=== PATIENT | male | born 1965 | race Caucasian/White ===

== ENCOUNTER 2018-11-22 16:36 | Outpatient (REF) | payer BC, SELFPAY ==
[2018-11-22 23:16] LABS: Polynuclear Cells 57 % (0-0)
[2018-11-22 23:26] LABS: Mononuclear Cells 43 % (0-0)
== END 2018-11-22 16:56 ==
LOC: NCHCN 16:36
PROVIDERS: PCP Nurse Practitioner Family; Visit Provider Nurse Practitioner Family
DX: M70.42 Prepatellar bursitis, left knee (principal)
CPT/HCPCS: 89051; 87070; 87106; 87205

== ENCOUNTER 2018-12-27 16:07 | Outpatient (REF) | payer BC, SELFPAY | END 2018-12-27 16:27 | LOC: NCHCN 16:07 | PROVIDERS: PCP Nurse Practitioner Family; Visit Provider Nurse Practitioner Family | DX: M70.42 Prepatellar bursitis, left knee (principal) | CPT/HCPCS: 87070; 87205 ==

== ENCOUNTER 2019-05-03 19:13 | Outpatient (REF) | payer BC, SELFPAY ==
[2019-05-03 20:30] LABS: HCT 43.8 % (40.0-50.0); HGB 15.1 g/dL (13.5-17.5); Mean Corp. HGB Concentration 34.5 g/dL (32.0-36.0); Mean Corpuscular Volume 89.9 fL (80-95); Platelet Count 362 x1000/uL (130-400); RBC 4.87 m/cumm (4.50-6.00); RBC Distribution Width 12.7 % (11.8-14.1); White Blood Cell Count 11.24 k/cumm (4.4-10.8)
[2019-05-03 20:44] LABS: Anion Gap 13.6 mmol/L (3-11); BUN 19 mg/dL (7-18); CO2 26.4 mmol/L (21.0-32.0); CREATININE 1.16 mg/dL (0.70-1.30); Calcium 9.2 mg/dL (8.5-10.1); Calculated LDL 116 mg/dL; Chloride 100 mmol/L (98-107); Cholesterol 196 mg/dL (<200); Glucose 86 mg/dL (74-106); HDL Cholesterol 47 mg/dL (40-60); Sodium 140 mmol/L (136-145); TSH 5.22 uIU/mL (0.36-3.74); Triglyceride 165 mg/dL (<150)
[2019-05-03 20:55] LABS: Hemoglobin A1C 5.5 % (4.5-6.2)
[2019-05-05 10:04] LABS: PSA, Screening 0.4 ng/mL (0.0-3.5)
[2019-05-06 16:15] LABS: Testosterone, Free 9.99 ng/dL (4.06-15.6); Testosterone, Total 454 ng/dL (240-950)
== END 2019-05-03 19:33 ==
LOC: NCHCN 19:13
PROVIDERS: PCP Nurse Practitioner Family; Visit Provider Nurse Practitioner Family
DX: I10 Essential (primary) hypertension (principal); E78.5 Hyperlipidemia, unspecified; E29.1 Testicular hypofunction; R53.83 Other fatigue; E66.9 Obesity, unspecified; Z12.5 Encounter for screening for malignant neoplasm of prostate; N40.0 Benign prostatic hyperplasia without lower urinary tract symptoms
CPT/HCPCS: 80048; 80061; 84153; 84402; 84403; 85027; 83036; 84443

== ENCOUNTER 2019-07-25 17:14 | Outpatient (REF) | payer BC, SELFPAY ==
[2019-07-25 22:17] LABS: TSH (W/Ref FT4) 2.82 uIU/mL (0.36-3.74)
== END 2019-07-25 17:34 ==
LOC: NCHCN 17:14
PROVIDERS: PCP Nurse Practitioner Family; Visit Provider Nurse Practitioner Family
DX: R94.6 Abnormal results of thyroid function studies (principal)
CPT/HCPCS: 84443

== ENCOUNTER 2020-04-09 13:00 | Outpatient (REF) | payer BC, SELFPAY ==
[2020-04-09 21:16] LABS: HCT 45.8 % (40.0-50.0); HGB 15.3 g/dL (13.5-17.5); MCH 31.1 pg (27.0-33.0); MCHC 33.4 % (32.0-36.0); MCV 93.1 fL (80-95); MPV 11.1 fL (8.0-11.0); Platelet Count 330 10^3/uL (130-400); RBC 4.92 10^6/uL (4.36-5.78); RDW 12.5 % (11.8-14.1); RDW-SD 42.5 fL; WBC 12.49 10^3/uL (4.4-10.8)
[2020-04-09 21:42] LABS: Hemoglobin A1C 5.5 % (<5.7)
[2020-04-09 21:59] LABS: ALT 38 U/L (16-63); AST 21 U/L (15-37); Albumin 4.4 g/dL (3.4-5.0); Alkaline Phosphatase 60 U/L (46-116); Anion Gap 11.5 mmol/L (3-11); BUN 21 mg/dL (7-18); Bilirubin, Total 0.4 mg/dL (0.2-1.0); CO2 24.5 mmol/L (21.0-32.0); Calcium 8.9 mg/dL (8.5-10.1); Calculated LDL 116 mg/dL (<100); Chloride 103 mmol/L (98-107); Cholesterol 199 mg/dL (<200); Glucose 115 mg/dL (74-106); HDL Cholesterol 55 mg/dL (40-60); Sodium 139 mmol/L (136-145); Total Protein 7.6 g/dL (6.4-8.2); Triglyceride 142 mg/dL (<150)
[2020-04-11 16:18] LABS: PSA, Screening 0.6 ng/mL (0-3.5)
[2020-04-17 16:36] LABS: Testosterone, Free 11.2 ng/dL (3.87-14.7); Testosterone, Total 468 ng/dL (240-950)
== END 2020-04-09 13:20 ==
LOC: NCHCN 13:00
PROVIDERS: PCP Nurse Practitioner Family; Visit Provider Nurse Practitioner Family
DX: G89.4 Chronic pain syndrome (principal); I10 Essential (primary) hypertension; N40.0 Benign prostatic hyperplasia without lower urinary tract symptoms; E29.1 Testicular hypofunction; Z13.1 Encounter for screening for diabetes mellitus; E66.9 Obesity, unspecified
CPT/HCPCS: 80053; 80061; 84153; 84402; 84403; 85027; 83036

== ENCOUNTER 2021-03-07 20:31 | Outpatient (REF) | payer BC, SELFPAY ==
[2021-03-07 21:02] LABS: HCT 43.1 % (40.0-50.0); HGB 14.5 g/dL (13.5-17.5); MCH 30.9 pg (27.0-33.0); MCHC 33.6 % (32.0-36.0); MCV 91.9 fL (80-95); MPV 10.6 fL (8.0-11.0); Platelet Count 326 10^3/uL (130-400); RBC 4.69 10^6/uL (4.36-5.78); RDW 12.2 % (11.8-14.1); RDW-SD 41.1 fL
[2021-03-07 21:22] LABS: Hemoglobin A1C 5.6 % (<5.7)
[2021-03-07 21:23] LABS: Anion Gap 9.8 mmol/L (3-11); BUN 19 mg/dL (7-18); CO2 28.2 mmol/L (21.0-32.0); CREATININE 1.1 mg/dL (0.70-1.30); Calcium 8.9 mg/dL (8.5-10.1); Calculated LDL 151 mg/dL (<100); Chloride 101 mmol/L (98-107); Cholesterol 230 mg/dL (<200); Glucose 84 mg/dL (74-106); HDL Cholesterol 51 mg/dL (40-60); Sodium 139 mmol/L (136-145); TSH 2.61 uIU/mL (0.36-3.74); Triglyceride 140 mg/dL (<150)
[2021-03-08 18:11] LABS: PSA, Screening 0.7 ng/mL (0.0-3.5)
[2021-03-18 16:04] LABS: Testosterone, Total 835 ng/dL (240-950)
== END 2021-03-07 20:32 | disposition home or self-care (01) ==
LOC: NCHCN 20:31
PROVIDERS: PCP Nurse Practitioner Family; Visit Provider Nurse Practitioner Family
DX: I10 Essential (primary) hypertension (principal); E29.1 Testicular hypofunction; E66.9 Obesity, unspecified; Z12.5 Encounter for screening for malignant neoplasm of prostate
CPT/HCPCS: 80048; 80061; 84153; 84402; 84403; 85027; 83036; 84443

== ENCOUNTER 2021-06-03 17:32 | Outpatient (REF) | payer BC, SELFPAY ==
[2021-06-03 21:54] LABS: COMMENT (LAB VIEW ONLY) 29.63 mg/dL; Microalb ug/mg Crea 11.5 ug/mg Cr
== END 2021-06-03 17:33 | disposition home or self-care (01) ==
LOC: NCHCN 17:32
PROVIDERS: PCP Nurse Practitioner Family; Visit Provider Nurse Practitioner Family
DX: I10 Essential (primary) hypertension (principal)
CPT/HCPCS: 82043; 82570

== ENCOUNTER 2021-07-10 15:02 | Outpatient (REF) | payer BC, SELFPAY ==
[2021-07-10 22:24] LABS: Calculated LDL 79 mg/dL (<100); Cholesterol 153 mg/dL (<200); HDL Cholesterol 48 mg/dL (40-60); Triglyceride 134 mg/dL (<150)
== END 2021-07-10 15:03 | disposition home or self-care (01) ==
LOC: NCHCN 15:02
PROVIDERS: PCP Nurse Practitioner Family; Visit Provider Nurse Practitioner Family
DX: E78.5 Hyperlipidemia, unspecified (principal)
CPT/HCPCS: 80061

== ENCOUNTER 2021-08-21 08:18 | Outpatient (REF) | payer BC, SELFPAY ==
[2021-08-21 18:05] LABS: Hemoglobin A1C 5.4 % (<5.7)
== END 2021-08-21 08:19 | disposition home or self-care (01) ==
LOC: NCHCN 08:18
PROVIDERS: PCP Nurse Practitioner Family; Visit Provider Nurse Practitioner Family
DX: I10 Essential (primary) hypertension (principal); E78.5 Hyperlipidemia, unspecified; E66.9 Obesity, unspecified
CPT/HCPCS: 83036

== ENCOUNTER 2021-10-28 15:49 | Outpatient (REF) | payer BC, SELFPAY ==
[2021-11-01 16:12] LABS: Testosterone, Free 7.98 ng/dL (3.87-14.7); Testosterone, Total 399 ng/dL (240-950)
== END 2021-10-28 15:50 | disposition home or self-care (01) ==
LOC: NCHCN 15:49
PROVIDERS: PCP Nurse Practitioner Family; Visit Provider Nurse Practitioner Family
DX: E29.1 Testicular hypofunction (principal)
CPT/HCPCS: 84402; 84403

== ENCOUNTER 2022-03-06 21:29 | Outpatient (REF) | payer BC, SELFPAY ==
[2022-03-06 22:35] LABS: HCT 43.2 % (40.0-50.0); HGB 14.8 g/dL (13.5-17.5); MCH 31.5 pg (27.0-33.0); MCHC 34.3 % (32.0-36.0); MCV 92 fL (80-95); MPV 10.6 fL (8.0-11.0); Platelet Count 339 10^3/uL (130-400); RDW 12.1 % (11.8-14.1); RDW-SD 41.2 fL; WBC 14.84 10^3/uL (4.4-10.8)
[2022-03-06 22:41] LABS: ALT 53 U/L (16-63); AST 34 U/L (15-37); Albumin 4.4 g/dL (3.4-5.0); Alkaline Phosphatase 56 U/L (46-116); Anion Gap 10.3 mmol/L (3-11); BUN 19 mg/dL (7-18); Bilirubin, Total 0.8 mg/dL (0.2-1.0); CO2 26.7 mmol/L (21.0-32.0); CREATININE 1.1 mg/dL (0.70-1.30); Calcium 9.2 mg/dL (8.5-10.1); Calculated LDL 128 mg/dL (<100); Chloride 99 mmol/L (98-107); Cholesterol 200 mg/dL (<200); Glucose 86 mg/dL (74-106); HDL Cholesterol 51 mg/dL (40-60); Sodium 136 mmol/L (136-145); TSH 2.19 uIU/mL (0.36-3.74); Total Protein 7.9 g/dL (6.4-8.2); Triglyceride 109 mg/dL (<150)
[2022-03-07 20:44] LABS: PSA, Screening 0.8 ng/mL (<=3.5)
[2022-03-16 15:55] LABS: Testosterone, Free 11.1 ng/dL (3.87-14.7); Testosterone, Total 433 ng/dL (240-950)
== END 2022-03-06 21:30 | disposition home or self-care (01) ==
LOC: NCHCN 21:29
PROVIDERS: PCP Nurse Practitioner Family; Visit Provider Nurse Practitioner Family
DX: I10 Essential (primary) hypertension (principal); E78.5 Hyperlipidemia, unspecified; E66.9 Obesity, unspecified; R53.83 Other fatigue; Z13.29 Encounter for screening for other suspected endocrine disorder; Z12.5 Encounter for screening for malignant neoplasm of prostate
CPT/HCPCS: 80053; 80061; 84153; 84402; 84403; 85027; 84443

== ENCOUNTER 2023-02-12 14:36 | Outpatient (REF) | payer BC, SELFPAY ==
[2023-02-12 15:48] LABS: HCT 44.3 % (40.0-50.0); MCH 31.2 pg (27.0-33.0); MCHC 33.9 % (32.0-36.0); MCV 92 fL (80-95); MPV 10.8 fL (8.0-11.0); Platelet Count 342 10^3/uL (130-400); RBC 4.81 10^6/uL (4.36-5.78); RDW 12.4 % (11.8-14.1); RDW-SD 42.2 fL; WBC 14.62 10^3/uL (4.4-10.8)
[2023-02-12 16:15] LABS: Hemoglobin A1C 5.7 % (<5.7)
[2023-02-12 16:23] LABS: ALT 56 U/L (16-63); AST 36 U/L (15-37); Alkaline Phosphatase 58 U/L (46-116); Anion Gap 11.3 mmol/L (3-11); BUN 22 mg/dL (7-18); Bilirubin, Total 0.5 mg/dL (0.2-1.0); CO2 25.7 mmol/L (21.0-32.0); CREATININE 1.2 mg/dL (0.70-1.30); Calcium 9.4 mg/dL (8.5-10.1); Calculated LDL 139 mg/dL (<100); Chloride 99 mmol/L (98-107); Cholesterol 221 mg/dL (<200); Glucose 109 mg/dL (74-106); HDL Cholesterol 53 mg/dL (40-60); Potassium 4.3 mmol/L (3.5-5.1); Sodium 136 mmol/L (136-145); Total Protein 7.9 g/dL (6.4-8.2); Triglyceride 146 mg/dL (<150)
[2023-02-12 23:01] LABS: PSA, Screening 0.9 ng/mL (<=3.5)
[2023-02-13 10:57] LABS: HIV-1/2 Ag & Ab Screen Negative (Negative)
[2023-02-13 10:59] LABS: Hepatitis C Ab w Rflx HCV PCR Negative (Negative)
== END 2023-02-12 14:37 | disposition home or self-care (01) ==
LOC: NCHCN 14:36
PROVIDERS: PCP Nurse Practitioner Family; Visit Provider Nurse Practitioner Family
DX: Z12.5 Encounter for screening for malignant neoplasm of prostate (principal); Z11.4 Encounter for screening for human immunodeficiency virus [HIV]; Z13.1 Encounter for screening for diabetes mellitus; E66.9 Obesity, unspecified; I10 Essential (primary) hypertension; E78.5 Hyperlipidemia, unspecified; R53.81 Other malaise; E29.1 Testicular hypofunction; Z11.59 Encounter for screening for other viral diseases; R53.83 Other fatigue
CPT/HCPCS: 80053; 80061; 84153; 85027; 86803; 87389; 83036

== ENCOUNTER 2023-04-28 15:20 | Outpatient (REF) | payer BC, SELFPAY ==
[2023-04-28 15:34] LABS: Calculated LDL 117 mg/dL (<100); Cholesterol 192 mg/dL (<200); HDL Cholesterol 49 mg/dL (40-60); Triglyceride 131 mg/dL (<150)
[2023-05-02 09:24] LABS: Testosterone, Total 330 ng/dL (240-950)
== END 2023-04-28 15:21 | disposition home or self-care (01) ==
LOC: NCHCN 15:20
PROVIDERS: PCP Nurse Practitioner Family; Visit Provider Nurse Practitioner Family
DX: E78.5 Hyperlipidemia, unspecified (principal); E29.1 Testicular hypofunction
CPT/HCPCS: 80061; 84403

== ENCOUNTER 2024-02-04 12:06 | Outpatient (REF) | payer BC, SELFPAY ==
[2024-02-04 15:05] LABS: HCT 44.4 % (40.0-50.0); HGB 15.1 g/dL (13.5-17.5); MCH 31.6 pg (27.0-33.0); MCV 93 fL (80-95); Platelet Count 335 10^3/uL (130-400); RBC 4.78 10^6/uL (4.36-5.78); RDW 12.8 % (11.8-14.1); RDW-SD 43.5 fL; WBC 17.07 10^3/uL (4.4-10.8)
[2024-02-04 15:25] LABS: Hemoglobin A1C 4.7 % (<5.7)
[2024-02-04 15:36] LABS: ALT 38 U/L (16-63); AST 20 U/L (15-37); Alkaline Phosphatase 66 U/L (46-116); Anion Gap 7.1 mmol/L (3-11); BUN 19 mg/dL (7-18); Bilirubin, Total 0.59 mg/dL (0.2-1.0); CO2 29.9 mmol/L (21.0-32.0); CREATININE 1.1 mg/dL (0.70-1.30); Calculated LDL 112 mg/dL (<100); Chloride 104 mmol/L (98-107); Cholesterol 190 mg/dL (<200); Estimated GFR 77.33 (mL/min/1.73m2); Glucose 106 mg/dL (74-106); HDL Cholesterol 47 mg/dL (40-60); Potassium 4.6 mmol/L (3.5-5.1); Sodium 141 mmol/L (136-145); TSH 3.36 uIU/Ml (0.36-3.74); Total Protein 7.3 g/dL (6.4-8.2); Triglyceride 158 mg/dL (<150)
[2024-02-12 13:04] LABS: Testosterone, Free 7.31 ng/dL (3.87-14.7); Testosterone, Total 281 ng/dL (240-950)
== END 2024-02-04 12:07 | disposition home or self-care (01) ==
LOC: NCHCN 12:06
PROVIDERS: PCP Nurse Practitioner Family; Visit Provider Nurse Practitioner Family
DX: Z13.0 Encounter for screening for diseases of the blood and blood-forming organs and certain disorders involving the immune mechanism (principal); E29.1 Testicular hypofunction; I10 Essential (primary) hypertension; Z13.228 Encounter for screening for other metabolic disorders
CPT/HCPCS: 80053; 80061; 84402; 84403; 85027; 83036; 84443

== ENCOUNTER 2024-02-15 20:37 | Outpatient (REF) | payer BC, SELFPAY ==
[2024-02-15 21:58] LABS: Abs Immature Grans 0.09 10^3/uL (0.0-0.06); HGB 14.5 g/dL (13.5-17.5); MCHC 33.7 % (32.0-36.0); MCV 92 fL (80-95); MPV 11.1 fL (8.0-11.0); Platelet Count 323 10^3/uL (130-400); RBC 4.68 10^6/uL (4.36-5.78); RDW 12.6 % (11.8-14.1); RDW-SD 42.5 fL; WBC 16.41 10^3/uL (4.4-10.8)
[2024-02-15 22:17] LABS: Absolute Monocyte Count 1.15 10^3/uL (0.1-0.8); Absolute Neutrophil Count 4.76 10^3/uL (1.2-6.7)
[2024-02-15 22:18] LABS: Diff Comment Manual Differential; RBC Morphology Normal
== END 2024-02-15 20:38 | disposition home or self-care (01) ==
LOC: NCHCN 20:37
PROVIDERS: PCP Nurse Practitioner Family; Visit Provider Nurse Practitioner Family
DX: D72.829 Elevated white blood cell count, unspecified (principal)
CPT/HCPCS: 85025

== ENCOUNTER 2024-03-16 19:44 | Outpatient (REF) | payer BC, SELFPAY ==
[2024-03-16 21:02] LABS: Abs Immature Grans 0.05 10^3/uL (0.0-0.06); HCT 46.1 % (40.0-50.0); HGB 15.2 g/dL (13.5-17.5); MCH 31.2 pg (27.0-33.0); MCV 95 fL (80-95); MPV 10.6 fL (8.0-11.0); Platelet Count 324 10^3/uL (130-400); RBC 4.87 10^6/uL (4.36-5.78); RDW 12.2 % (11.8-14.1); RDW-SD 42.2 fL; WBC 15.43 10^3/uL (4.4-10.8)
[2024-03-16 21:26] LABS: Absolute Neutrophil Count 4.01 10^3/uL (1.2-6.7); Atypical Lymphocytes % 3 %
[2024-03-16 21:27] LABS: Absolute Basophil Count 0.15 10^3/uL (0.0-0.2); Absolute Lymphocyte Count 10.34 10^3/uL (1.2-3.4); Absolute Monocyte Count 0.93 10^3/uL (0.1-0.8); Diff Comment Manual Differential; RBC Morphology Normal
[2024-03-17 21:15] LABS: PSA, Diagnostic 1.4 ng/mL (<=3.5)
== END 2024-03-16 19:45 | disposition home or self-care (01) ==
LOC: NCHCN 19:44
PROVIDERS: PCP Nurse Practitioner Family; Visit Provider Nurse Practitioner Family
DX: D72.820 Lymphocytosis (symptomatic) (principal); N40.1 Benign prostatic hyperplasia with lower urinary tract symptoms
CPT/HCPCS: 84153; 85025

== ENCOUNTER 2024-06-22 16:33 | Outpatient (REF) | payer BC, SELFPAY ==
[2024-06-28 17:01] LABS: Testosterone, Total 294 ng/dL (240-950)
== END 2024-06-22 16:34 | disposition home or self-care (01) ==
LOC: NCHCN 16:33
PROVIDERS: PCP Nurse Practitioner Family; Visit Provider Nurse Practitioner Family
DX: E29.1 Testicular hypofunction (principal)
CPT/HCPCS: 84403

== ENCOUNTER 2024-08-23 11:57 | Outpatient (REF) | payer BC, SELFPAY ==
[2024-08-23 15:27] LABS: Abs Immature Grans 0.05 10^3/uL (0.0-0.06); HGB 15.3 g/dL (13.5-17.5); MCH 30.6 pg (27.0-33.0); MCHC 33.3 % (32.0-36.0); MCV 92 fL (80-95); MPV 10.9 fL (8.0-11.0); Platelet Count 292 10^3/uL (130-400); RDW 12.8 % (11.8-14.1); RDW-SD 42.8 fL
[2024-08-23 15:46] LABS: Hemoglobin A1C 5.7 % (<5.7)
[2024-08-23 15:48] LABS: ALT 51 U/L (16-63); AST 37 U/L (15-37); Absolute Eosinophil Count 0.29 10^3/uL (0.0-0.7); Absolute Lymphocyte Count 9.11 10^3/uL (1.2-3.4); Absolute Monocyte Count 0.59 10^3/uL (0.1-0.8); Albumin 3.9 g/dL (3.4-5.0); Alkaline Phosphatase 66 U/L (46-116); Anion Gap 6.4 mmol/L (3-11); Atypical Lymphocytes % 6 %; BUN 19 mg/dL (7-18); Bands % 0 %; Bilirubin, Total 0.7 mg/dL (0.2-1.0); CO2 28.6 mmol/L (21.0-32.0); CREATININE 1.1 mg/dL (0.70-1.30); Calcium 9.3 mg/dL (8.5-10.1); Calculated LDL 47 mg/dL (<100); Chloride 106 mmol/L (98-107); Cholesterol 122 mg/dL (<200); Diff Comment Manual Differential; Estimated GFR 77.33 (mL/min/1.73m2); Glucose 102 mg/dL (74-106); HDL Cholesterol 50 mg/dL (>or=40); Potassium 4.4 mmol/L (3.5-5.1); Sodium 141 mmol/L (136-145); TSH 3.19 uIU/mL (0.36-3.74); Total Protein 7.5 g/dL (6.4-8.2); Triglyceride 126 mg/dL (<150)
[2024-08-23 15:49] LABS: RBC Morphology Normal
[2024-08-23 22:20] LABS: PSA, Screening 1.1 ng/mL (<=3.5)
[2024-08-26 14:45] LABS: Testosterone, Total 323 ng/dL (240-950)
== END 2024-08-23 11:58 | disposition home or self-care (01) ==
LOC: NCHCN 11:57
PROVIDERS: PCP Nurse Practitioner Family; Visit Provider Nurse Practitioner Family
DX: C91.90 Lymphoid leukemia, unspecified not having achieved remission (principal); I10 Essential (primary) hypertension; E78.5 Hyperlipidemia, unspecified; E29.1 Testicular hypofunction
CPT/HCPCS: 80053; 80061; 84153; 84403; 83036; 84443; 85025